=== PATIENT | female | born 1990 ===

== ENCOUNTER 2020-08-04 16:57 | Emergency (ER) | payer SELFPAY ==
[~2020-08-04] VITALS: Ht 165.1 cm; Wt 57.0 kg
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
--- NOTE | 2020-08-04 17:10 | NUR ---
PT MOM CALLED, SHE SAID LET HER DAUGHTER KNOW SHE CALLED AND LOVES HER. NO INFO RELEASED.
[2020-08-04] MEDS ORDERED: SODIUM CHLORIDE 0.9% 1,000ML IVBOLUS ONE (17:30)
[2020-08-04 17:45] LABS: BASOPHILS % (AUTO) 1 % (0-1); EOSINOPHILS % (AUTO) 0 % (1-7); LYMPHOCYTES % (AUTO) 14 % (22-44); MEAN CORPUSCULAR HEMOGLOBIN 30.8 pg (27.0-34.8); MEAN CORPUSCULAR HGB CONC 33.5 g/dL (32.4-35.8); MEAN PLATELET VOLUME 7.4 fL (7.4-10.4); MONOCYTES % (AUTO) 6 % (2-9); NEUTROPHILS % (AUTO) 78 % (42-75); PLATELET COUNT 301 x10^3/uL (130-400); RED BLOOD COUNT 4.59 x10^6/uL (3.82-5.3); RED CELL DISTRIBUTION WIDTH 13.7 % (9.6-15.2)
[2020-08-04 17:55] LABS: ALANINE AMINOTRANSFERASE 35 U/L (12-78); ALBUMIN 3.7 g/dL (3.4-5.0); ANION GAP 11 mmol/L (5-15); CALCIUM 7.9 mg/dL (8.5-10.1); CHLORIDE 113 mmol/L (98-107); CREATININE 0.76 mg/dL (0.55-1.02)
[2020-08-04 18:00] LABS: ALKALINE PHOSPHATASE 66 U/L (45-117); BILIRUBIN,TOTAL 1.1 mg/dL (0.2-1.0); TOTAL PROTEIN 7.4 g/dL (6.4-8.2)
--- NOTE | 2020-08-04 18:04 | NUR ---
ROUNDING ON PT, SHE STATES SHE WANTS TO LEAVE AND REFUSES IVF. VSS, WILL NOTIFY
--- NOTE | 2020-08-04 18:09 | NUR ---
UPDATED ON PT REQUEST, AND IS AWARE SHE IS REFUSING IVF. HE STATES PT NEEDS AT MINIMUM CT PRIOR TO DC. PT AND [employer] UPDATED OF THIS. PT UPDATED REQUIREMENT FOR CT. SHE IS VERY EMOTIONAL AT THIS TIME SHE WANTS TO KNOW WHERE HER KIDS ARE AND IF THEY ARE STABLE. PT REFUSED ICE PACK WELL FOR RN AND [facility]HT.
--- NOTE | 2020-08-04 18:14 | NUR ---
PT TO CT.
--- NOTE | 2020-08-04 18:56 | NUR ---
Report recieved from Penny STEVENS
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
[2020-08-04] MEDS ORDERED: PLEASE ENTER ALLERGIES MC SCH (20:00)
[2020-08-04] MEDS ORDERED: ACETAMINOPHEN 500 MG TABLET PO ONE (20:00)
[2020-08-04] MEDS ORDERED: ONDANSETRON 2MG/ML, 2ML IVPush ONE (20:30)
[2020-08-04] MEDS ORDERED: ONDANSETRON 2MG/ML, 2ML ONE (20:39)
[2020-08-04 20:47] VITALS: BP 112/73
== END 2020-08-04 20:52 | disposition home or self-care (01) ==
LOC: ED 17:30
DX: O03.4 Incomplete spontaneous abortion without complication (principal); S00.11XA Contusion of right eyelid and periocular area, initial encounter; S20.211A Contusion of right front wall of thorax, initial encounter; S40.012A Contusion of left shoulder, initial encounter; W01.0XXA Fall on same level from slipping, tripping and stumbling without subsequent striking against object, initial encounter; Y93.89 Activity, other specified; Y92.410 Unspecified street and highway as the place of occurrence of the external cause; Y99.8 Other external cause status
CPT/HCPCS: 70486; 71045; 73030; 76705; 76801; 80053; 80320; 83690; 84702; 84703; 85025; 96374; 99285; J2405; 36415; G0480